=== PATIENT | male | born 1945 | race Caucasian/White ===

== ENCOUNTER 2022-08-01 17:45 | Inpatient (IN) | payer MEDICARE ==
[2022-08-01] MEDS ORDERED: Ketorolac Tromethamine 30 MG/ML VIAL ONE (18:55)
[2022-08-01] MEDS ORDERED: Fentanyl 100 MCG/2 ML VIAL ONE (18:55)
[2022-08-01] MEDS ORDERED: Ondansetron PF 4 MG/2 ML Vial ONE (18:55)
[2022-08-01] MEDS ORDERED: LORazepam 2 MG/ML SYR.(CARPUJECT) ONE (18:57)
[2022-08-01 19:42] LABS: #Basophils 0.1 thou/uL (0.0-0.2); #Eosinphils 0.2 thou/uL (0.0-0.7); #Lymphocytes 2.4 thou/uL (1.20-3.40); #Neutrophils 3.2 thou/uL (1.40-6.50); %Basophils 1.1 % (0.0-1.0); %Eosinophils 2.5 % (0.0-10.0); %Lymphocytes 34.8 % (21.0-51.0); %Monocytes 14.7 % (0.0-10.0); %Neutrophils 46.8 % (42.0-75.0); Hemoglobin 17.8 g/dL (14.0-18.0); Mean Corpuscular HGB CONC 33.4 g/dL (32.0-36.0); Mean Corpuscular Hemoglobin 30.9 pg (27.0-31.0); Mean Corpuscular Volume 92.7 fl (78.0-98.0); Mean Platelet Volume 7.1 fL (7.4-10.4); Platelet Count 113 10x3/uL (130-400); RBC Distribution Width 12.5 % (11.5-14.5); Red Blood Cell (RBC) Count 5.75 mill/uL (4.70-6.10); White Blood Cell (WBC) Count 6.9 10x3/uL (4.8-10.8)
[2022-08-01 19:45] LABS: Bilirubin Negative (Negative); Blood, Urine Negative (Negative); Clarity Clear (Clear); Glucose, Urine (Dipstick) 500 mg/dL (Negative); Ketone, Urine Negative (Negative); Leukocyte Negative Leu/uL (Negative); Nitrite Negative (Negative); Protein, Urine (Dipstick) Negative (Neg-Trace); Specific Gravity, Urine 1.024 (1.002-1.036); Urobilinogen 3 mg/dL (Less than 2); pH, Urine 5.5 (5.0-9.0)
[2022-08-01 19:51] LABS: INR-International Normal Ratio 0.9; Prothrombin Time 12.2 sec (12.0-14.7)
[2022-08-01 20:08] LABS: ALT (SGPT) 33 U/L (8-55); AST (SGOT) 33 U/L (5-34); Alkaline Phosphatase 59 U/L (40-110); Anion Gap 15 mmol/L (10-20); BUN (Urea Nitrogen) 17 mg/dL (8.4-25.7); Bilirubin, Total 0.8 mg/dL (0.2-1.2); Calc. Creatinine Clearance 0 mL/min (70-130); Calcium 9.1 mg/dL (7.8-10.44); Carbon Dioxide 24 mmol/L (23-31); Chloride 104 mmol/L (98-107); Estimated GFR 89; Globulin 3.1 g/dL (2.4-3.5); Glucose 142 mg/dL (83-110); Protein, Total 7.1 g/dL (5.8-8.1); Sodium 138 mmol/L (136-145)
[2022-08-01] MEDS ORDERED: Morphine 4 MG/ML VIAL ONE (21:08)
[2022-08-01] MEDS ORDERED: Dexamethasone 10 MG/ML VIAL ONE (21:52)
[2022-08-01] MEDS ORDERED: HYDROcodone/Acetaminophen 7.5/325 mg Tablet PO PRN (22:02)
[2022-08-01] MEDS ORDERED: Acetaminophen 325 MG TAB PO PRN (22:02)
[2022-08-01] MEDS ORDERED: Ondansetron PF 4 MG/2 ML Vial IVP PRN (22:02)
[2022-08-01] MEDS ORDERED: HumaLOG 300 UNITS/3 ML VIAL SC PRN (22:06)
[2022-08-01] MEDS ORDERED: Dextrose 5% in Water 1,000 ML IV PRN (22:06)
[2022-08-01] MEDS ORDERED: Dextrose 50% Abboject 50 ML SYRINGE SLOW IVP PRN (22:06)
[2022-08-02 00:29] VITALS: BMI 28.3
[2022-08-02] MEDS: HYDROcodone/Acetaminophen 10/325 mg Tablet PO PRN ×2 (02:54→23:53)
[2022-08-02] MEDS: Cyclobenzaprine 10 MG TAB PO PRN ×2 (02:54→20:44)
[2022-08-02 07:19] LABS: #Lymphocytes 0.9 thou/uL (1.20-3.40); #Monocytes 0.2 thou/uL (0.11-0.59); #Neutrophils 3.5 thou/uL (1.40-6.50); %Eosinophils 0.5 % (0.0-10.0); %Lymphocytes 19.2 % (21.0-51.0); %Monocytes 3.7 % (0.0-10.0); %Neutrophils 75.6 % (42.0-75.0); Hemoglobin 17.4 g/dL (14.0-18.0); Mean Corpuscular HGB CONC 33.6 g/dL (32.0-36.0); Mean Corpuscular Hemoglobin 31.6 pg (27.0-31.0); Mean Corpuscular Volume 93.9 fl (78.0-98.0); Mean Platelet Volume 7.2 fL (7.4-10.4); Platelet Count 122 10x3/uL (130-400); RBC Distribution Width 12.3 % (11.5-14.5); Red Blood Cell (RBC) Count 5.51 mill/uL (4.70-6.10); White Blood Cell (WBC) Count 4.6 10x3/uL (4.8-10.8)
[2022-08-02] MEDS: Mometasone/Formoterol 200/5 60 PUFF INH SCH ×2 (07:22→18:40)
[2022-08-02 07:34] LABS: Anion Gap 13 mmol/L (10-20); BUN (Urea Nitrogen) 21 mg/dL (8.4-25.7); Calc. Creatinine Clearance 98 mL/min (70-130); Calcium 8.8 mg/dL (7.8-10.44); Carbon Dioxide 23 mmol/L (23-31); Chloride 104 mmol/L (98-107); Estimated GFR 87; Glucose 235 mg/dL (83-110); Potassium 4.8 mmol/L (3.5-5.1); Sodium 135 mmol/L (136-145)
[2022-08-02] MEDS: Morphine 2 MG/ML VIAL SLOW IVP PRN ×3 (07:40→20:38)
[2022-08-02] MEDS: Losartan 25 MG TAB PO SCH (08:56)
[2022-08-02] MEDS ORDERED: fentaNYL PF 100 MCG/2 ML SYRINGE ONE (14:57)
[2022-08-02] MEDS ORDERED: Ketamine 50 MG/ML (10ML VIAL) ONE (14:58)
[2022-08-02] MEDS ORDERED: HYDROmorphone 0.5 MG/0.5 ML SYRINGE ONE (15:45)
[2022-08-02] MEDS ORDERED: PROPOFOL 200 MG/20 ML VIAL ONE (15:51)
[2022-08-02] MEDS ORDERED: Lidocaine 1% PF 5 ML VIAL ONE (15:51)
[2022-08-02] MEDS ORDERED: Ondansetron PF 4 MG/2 ML Vial ONE (15:51)
[2022-08-02] MEDS ORDERED: HYDROmorphone 2 MG/ML VIAL SLOW IVP PRN (16:32)
[2022-08-02] MEDS ORDERED: Morphine Sulfate 2 MG/ML SYRINGE SLOW IVP PRN (16:32)
[2022-08-02] MEDS ORDERED: Promethazine HCl 25 MG/ML VIAL IM PRN (16:32)
[2022-08-02] MEDS ORDERED: Ondansetron HCl/PF 4 MG/2 ML Vial IVP PRN (16:32)
[2022-08-02] MEDS ORDERED: Ketorolac Tromethamine 30 MG/ML VIAL IVP PRN (16:32)
[2022-08-02] MEDS ORDERED: Ketorolac Tromethamine 30 MG/ML VIAL ONE (16:44)
[2022-08-02] MEDS: Gabapentin 100 MG CAP PO SCH (20:43)
[2022-08-02] MEDS: Fish Oil 1,000 MG CAP PO SCH (20:43)
[2022-08-02] MEDS: Simvastatin 10 MG TAB PO SCH (20:44)
[2022-08-02] MEDS: Tamsulosin HCl 0.4 MG CAP PO SCH (20:44)
[2022-08-02] MEDS: Lidocaine 5% Patch TD SCH (20:44)
[2022-08-02] MEDS: Montelukast Sodium 10 mg Tablet PO SCH (20:44)
[2022-08-02] MEDS: methylPREDNISolone Sod Succ 40 MG VIAL IVP SCH (20:49)
[2022-08-02] MEDS: HumaLOG 300 UNITS/3 ML VIAL SC PRN (23:56)
[2022-08-03] MEDS: HYDROcodone/Acetaminophen 10/325 mg Tablet PO PRN ×3 (05:15→23:13)
[2022-08-03] MEDS: Cyclobenzaprine 10 MG TAB PO PRN ×3 (05:15→23:14)
[2022-08-03] MEDS: methylPREDNISolone Sod Succ 40 MG VIAL IVP SCH ×3 (05:15→21:13)
[2022-08-03] MEDS: HumaLOG 300 UNITS/3 ML VIAL SC PRN ×4 (05:58→23:16)
[2022-08-03 06:39] LABS: #Basophils 0.1 thou/uL (0.0-0.2); #Lymphocytes 1.3 thou/uL (1.20-3.40); #Monocytes 0.7 thou/uL (0.11-0.59); #Neutrophils 5.2 thou/uL (1.40-6.50); %Basophils 0.7 % (0.0-1.0); %Eosinophils 0.3 % (0.0-10.0); %Lymphocytes 18.1 % (21.0-51.0); %Monocytes 9.6 % (0.0-10.0); %Neutrophils 71.3 % (42.0-75.0); Hemoglobin 16.1 g/dL (14.0-18.0); Mean Corpuscular HGB CONC 33.8 g/dL (32.0-36.0); Mean Corpuscular Volume 94.6 fl (78.0-98.0); Mean Platelet Volume 7.6 fL (7.4-10.4); Platelet Count 134 10x3/uL (130-400); RBC Distribution Width 12.4 % (11.5-14.5); Red Blood Cell (RBC) Count 5.05 mill/uL (4.70-6.10); White Blood Cell (WBC) Count 7.3 10x3/uL (4.8-10.8)
[2022-08-03 07:04] LABS: Anion Gap 13 mmol/L (10-20); BUN (Urea Nitrogen) 23 mg/dL (8.4-25.7); Calc. Creatinine Clearance 90 mL/min (70-130); Calcium 8.9 mg/dL (7.8-10.44); Carbon Dioxide 26 mmol/L (23-31); Chloride 103 mmol/L (98-107); Estimated GFR 79; Glucose 246 mg/dL (83-110); Potassium 4.3 mmol/L (3.5-5.1); Sodium 138 mmol/L (136-145)
[2022-08-03] MEDS: Mometasone/Formoterol 200/5 60 PUFF INH SCH ×2 (07:25→18:28)
[2022-08-03] MEDS: glipiZIDE 10 MG TAB PO SCH (08:29)
[2022-08-03] MEDS: Fish Oil 1,000 MG CAP PO SCH ×2 (08:29→21:11)
[2022-08-03] MEDS: Gabapentin 100 MG CAP PO SCH ×3 (08:30→21:11)
[2022-08-03] MEDS: Losartan 25 MG TAB PO SCH (08:30)
[2022-08-03] MEDS: Morphine 2 MG/ML VIAL SLOW IVP PRN (08:30)
[2022-08-03] MEDS: Aspirin 81 mg Enteric Coated Tablet PO SCH (08:30)
[2022-08-03] MEDS: Transdermal Patch Removal TOP SCH (08:31)
[2022-08-03] MEDS ORDERED: Non-Formulary Item 1 EACH (Vit D3-Vit K/Berberine/Hops [Ostera Tablet] 1 TABLET Tablet) PO SCH (09:00)
[2022-08-03] MEDS ORDERED: Polyethylene Glycol 3350 17 GM Packet PO SCH (20:00)
[2022-08-03] MEDS: Lidocaine 5% Patch TD SCH (21:09)
[2022-08-03] MEDS: Senokot S 8.6-50 MG TAB PO SCH (21:10)
[2022-08-03] MEDS: Tamsulosin HCl 0.4 MG CAP PO SCH (21:11)
[2022-08-03] MEDS: Montelukast Sodium 10 mg Tablet PO SCH (21:11)
[2022-08-03] MEDS: Simvastatin 10 MG TAB PO SCH (21:11)
[2022-08-04] MEDS: HumaLOG 300 UNITS/3 ML VIAL SC PRN (05:06)
[2022-08-04] MEDS: Morphine 2 MG/ML VIAL SLOW IVP PRN (05:08)
[2022-08-04] MEDS: methylPREDNISolone Sod Succ 40 MG VIAL IVP SCH (05:18)
[2022-08-04 07:02] LABS: #Lymphocytes 1.4 thou/uL (1.20-3.40); #Monocytes 0.8 thou/uL (0.11-0.59); #Neutrophils 6.6 thou/uL (1.40-6.50); %Basophils 0.2 % (0.0-1.0); %Eosinophils 0.2 % (0.0-10.0); %Lymphocytes 16.1 % (21.0-51.0); %Monocytes 9.1 % (0.0-10.0); %Neutrophils 74.4 % (42.0-75.0); Hemoglobin 16.1 g/dL (14.0-18.0); Mean Corpuscular HGB CONC 33.6 g/dL (32.0-36.0); Mean Corpuscular Hemoglobin 31.9 pg (27.0-31.0); Mean Corpuscular Volume 95.1 fl (78.0-98.0); Mean Platelet Volume 7.9 fL (7.4-10.4); Platelet Count 130 10x3/uL (130-400); RBC Distribution Width 12.3 % (11.5-14.5); Red Blood Cell (RBC) Count 5.06 mill/uL (4.70-6.10); White Blood Cell (WBC) Count 8.9 10x3/uL (4.8-10.8)
[2022-08-04 07:21] LABS: Anion Gap 14 mmol/L (10-20); BUN (Urea Nitrogen) 20 mg/dL (8.4-25.7); Calc. Creatinine Clearance 95 mL/min (70-130); Calcium 9.3 mg/dL (7.8-10.44); Carbon Dioxide 26 mmol/L (23-31); Chloride 100 mmol/L (98-107); Estimated GFR 85; Glucose 301 mg/dL (83-110); Sodium 135 mmol/L (136-145)
[2022-08-04] MEDS: Mometasone/Formoterol 200/5 60 PUFF INH SCH (07:48)
[2022-08-04 08:18] VITALS: BP 163/73; TEMP 97.7
[2022-08-04] MEDS: Fish Oil 1,000 MG CAP PO SCH (08:47)
[2022-08-04] MEDS: Gabapentin 100 MG CAP PO SCH (08:47)
[2022-08-04] MEDS: glipiZIDE 10 MG TAB PO SCH (08:47)
[2022-08-04] MEDS: Transdermal Patch Removal TOP SCH (08:47)
[2022-08-04] MEDS: Losartan 25 MG TAB PO SCH (08:48)
[2022-08-04] MEDS: Senokot S 8.6-50 MG TAB PO SCH (08:48)
[2022-08-04] MEDS: Aspirin 81 mg Enteric Coated Tablet PO SCH (08:48)
[2022-08-04] MEDS ORDERED: Polyethylene Glycol 3350 17 GM Packet PO SCH (09:00)
[2022-08-04] MEDS ORDERED: PRILOSEC 20 MG PO SCH (09:00)
== END 2022-08-04 12:18 | disposition home or self-care (01) | DRG 552 ==
LOC: ERS 17:45 → T4-B 21:30 → OBSVTOIN 08-03 14:03
PROVIDERS: ADMIT Internal Medicine; ATTEND Family Medicine
DX: M54.16 Radiculopathy, lumbar region (principal); M25.78 Osteophyte, vertebrae; E11.9 Type 2 diabetes mellitus without complications; E78.5 Hyperlipidemia, unspecified; I10 Essential (primary) hypertension; D69.6 Thrombocytopenia, unspecified; Z87.891 Personal history of nicotine dependence
CPT/HCPCS: 36415; 36416; 71045; 72131; 72148; 80048; 80053; 81003; 85025; 85610; 85730; 93005; 96375; 96376; G0378; J1100; J1170; J1815; J1885; J2060; J2270; J2272; J2405; J2704; J2920; J3010; U0003; U0005

== ENCOUNTER 2022-08-22 10:47 | Emergency (ER) | payer MEDICARE ==
[2022-08-22 12:09] LABS: ALT (SGPT) 13 U/L (8-55); AST (SGOT) 13 U/L (5-34); Albumin 3.6 g/dL (3.4-4.8); Alkaline Phosphatase 64 U/L (40-110); Anion Gap 12 mmol/L (10-20); BUN (Urea Nitrogen) 36 mg/dL (8.4-25.7); Bilirubin, Total 0.8 mg/dL (0.2-1.2); Calc. Creatinine Clearance 0 mL/min (70-130); Calcium 8.6 mg/dL (7.8-10.44); Carbon Dioxide 27 mmol/L (23-31); Chloride 100 mmol/L (98-107); Estimated GFR 39; Globulin 2.6 g/dL (2.4-3.5); Glucose 178 mg/dL (83-110); Potassium 4.7 mmol/L (3.5-5.1); Protein, Total 6.2 g/dL (5.8-8.1); Sodium 134 mmol/L (136-145)
[2022-08-22 12:11] LABS: Bacteria/HPF None Seen HPF (None Seen); Bilirubin Negative (Negative); Blood, Urine Trace (Negative); Clarity Clear (Clear); Glucose, Urine (Dipstick) 200 mg/dL (Negative); Ketone, Urine Negative (Negative); Leukocyte Negative Leu/uL (Negative); Nitrite Negative (Negative); Protein, Urine (Dipstick) Negative (Neg-Trace); Specific Gravity, Urine 1.018 (1.002-1.036); Squamous Epithelial 0-3 HPF (0-3); Urobilinogen Normal mg/dL (Less than 2); WBC/HPF 0-3 HPF (0-3)
[2022-08-22 12:31] LABS: Eosinophils 2 % (0-10); Hemoglobin 14.6 g/dL (14.0-18.0); Lymphocytes 26 % (21-51); MDiff Complete? YES; Mean Corpuscular HGB CONC 33.7 g/dL (32.0-36.0); Mean Corpuscular Hemoglobin 31.4 pg (27.0-31.0); Mean Corpuscular Volume 93.1 fl (78.0-98.0); Mean Platelet Volume 6.7 fL (7.4-10.4); Monocytes 13 % (0-10); Neutrophil 56 % (42-75); Platelet Count 147 10x3/uL (130-400); Platelet Morphology Comment Appears Adequate; Polychromasia SLIGHT = 2-3 cells (100X) (0-2/hpf); RBC Distribution Width 12.3 % (11.5-14.5); Reactive Lymphocytes 3 % (0-10); Red Blood Cell (RBC) Count 4.65 mill/uL (4.70-6.10); Small Platelets SLIGHT; White Blood Cell (WBC) Count 6.8 10x3/uL (4.8-10.8)
== END 2022-08-22 15:49 | disposition home or self-care (01) ==
LOC: ERS 10:47
DX: I82.431 Acute embolism and thrombosis of right popliteal vein (principal); E78.5 Hyperlipidemia, unspecified; E11.9 Type 2 diabetes mellitus without complications; I11.0 Hypertensive heart disease with heart failure; I50.9 Heart failure, unspecified; Z79.84 Long term (current) use of oral hypoglycemic drugs; Z79.899 Other long term (current) drug therapy
CPT/HCPCS: 36415; 71045; 80053; 81003; 81015; 83880; 84443; 84484; 85025; 93005; 96372; J1650

== ENCOUNTER 2022-09-29 05:13 | Inpatient (IN) | payer MEDICARE ==
[2022-09-29] MEDS ORDERED: Naloxone HCl 0.4 mg/ml Vial ONE (05:30)
[2022-09-29 06:06] LABS: Analyzer IN Cardio ER; Base Excess (BEa) 3.3 mEq/L (-2.0 to +3.0); CO2 Tension 42.9 mmHg (35.0-45.0); Calcium, Ionized (arterial) 1.09 mmol/L (1.12-1.30); Carboxyhemoglobin (COHb) 1.2 gm% (0.0-3.0); Hemoglobin (Hb) 14.5 g/dL (14.0-18.0); pH, Arterial 7.43 (7.35-7.45)
[2022-09-29 06:09] LABS: ALV-art Gradient 110.925 mmHg (0-20); Puncture Site RR
[2022-09-29 06:12] LABS: #Lymphocytes 0.6 thou/uL (1.20-3.40); #Monocytes 1.2 thou/uL (0.11-0.59); #Neutrophils 9.7 thou/uL (1.40-6.50); %Basophils 0.3 % (0.0-1.0); %Eosinophils 0.2 % (0.0-10.0); %Lymphocytes 4.8 % (21.0-51.0); %Monocytes 10.8 % (0.0-10.0); %Neutrophils 83.9 % (42.0-75.0); Hemoglobin 14.2 g/dL (14.0-18.0); Mean Corpuscular HGB CONC 34.5 g/dL (32.0-36.0); Mean Corpuscular Hemoglobin 32.4 pg (27.0-31.0); Mean Corpuscular Volume 93.7 fl (78.0-98.0); Mean Platelet Volume 7.3 fL (7.4-10.4); Platelet Count 141 10x3/uL (130-400); RBC Distribution Width 12.8 % (11.5-14.5); White Blood Cell (WBC) Count 11.5 10x3/uL (4.8-10.8)
[2022-09-29 06:35] LABS: ALT (SGPT) 16 U/L (8-55); AST (SGOT) 31 U/L (5-34); Albumin 3.2 g/dL (3.4-4.8); Alkaline Phosphatase 68 U/L (40-110); Anion Gap 17 mmol/L (10-20); BUN (Urea Nitrogen) 20 mg/dL (8.4-25.7); Bilirubin, Total 0.9 mg/dL (0.2-1.2); CK (CPK) 53 U/L (30-200); Calc. Creatinine Clearance 0 mL/min (70-130); Calcium 8.6 mg/dL (7.8-10.44); Carbon Dioxide 23 mmol/L (23-31); Chloride 103 mmol/L (98-107); Estimated GFR 50; Globulin 3.3 g/dL (2.4-3.5); Glucose 293 mg/dL (83-110); Potassium 3.6 mmol/L (3.5-5.1); Protein, Total 6.5 g/dL (5.8-8.1); Sodium 139 mmol/L (136-145)
[2022-09-29 06:55] LABS: CKMB 1.2 ng/mL (0-6.6)
[2022-09-29] MEDS ORDERED: Piperacillin/Tazobactam 3.375 GM VIAL ONE (07:53)
[2022-09-29 08:49] LABS: Bacteria/HPF 2+ HPF (None Seen); Bilirubin Negative (Negative); Blood, Urine 3+ (Negative); Clarity Extra Turbid (Clear); Glucose, Urine (Dipstick) 500 mg/dL (Negative); Ketone, Urine Negative (Negative); Leukocyte 500 Leu/uL (Negative); Nitrite Negative (Negative); Protein, Urine (Dipstick) 50 mg/dL (Neg-Trace); Specific Gravity, Urine 1.011 (1.002-1.036); Squamous Epithelial None Seen HPF (0-3); Urobilinogen Normal mg/dL (Less than 2); WBC/HPF Greater than 50 HPF (0-3); pH, Urine 5.5 (5.0-9.0)
[2022-09-29] MEDS ORDERED: Dextrose 50% Abboject 50 ML SYRINGE SLOW IVP PRN (09:14)
[2022-09-29] MEDS ORDERED: Dextrose 5% in Water 1,000 ML IV PRN (09:14)
[2022-09-29 09:15] LABS: Troponin I 0.297 ng/mL (< 0.028)
[2022-09-29] MEDS ORDERED: Cyclobenzaprine 10 MG TAB PO PRN (09:17)
[2022-09-29] MEDS ORDERED: Metoclopramide HCl 10 MG/2 ML VIAL IVP PRN (09:23)
[2022-09-29] MEDS ORDERED: Sodium Chloride 0.9% 500 ML IV SCH (09:30)
[2022-09-29] MEDS ORDERED: Iopamidol-370 76% 500 ML MDV (1 ML CHARGE) ONE (09:32)
[2022-09-29] MEDS ORDERED: Lidocaine 4% Patch TD SCH (10:00)
[2022-09-29] MEDS ORDERED: Cefepime 1 GM VIAL ONE (12:40)
[2022-09-29] MEDS: Cefepime 1 GM in Sodium Chloride 0.9% 100 ML IVPB SCH (13:04)
[2022-09-29] MEDS: Sodium Chloride 0.9% 1,000 ML IV SCH ×2 (13:05→21:45)
[2022-09-29 13:06] LABS: Critical Call Chem Troponin I RESULT DECREASING; Troponin I 0.268 ng/mL (< 0.028)
[2022-09-29] MEDS ORDERED: Hydrocodone-Acetamin 15 ML UDCUP ONE (13:39)
[2022-09-29] MEDS ORDERED: HYDROcodone/Acetaminophen 7.5/325 mg Tablet ONE ×2 (13:41→13:44)
[2022-09-29] MEDS: HYDROcodone/Acetaminophen 7.5/325 mg Tablet PO PRN (13:52)
[2022-09-29] MEDS ORDERED: Acetaminophen 500 MG TAB ONE (15:51)
[2022-09-29] MEDS: Acetaminophen 500 MG TAB PO PRN (16:01)
[2022-09-29] MEDS ORDERED: Metoclopramide HCl 10 MG/2 ML VIAL ONE (16:37)
[2022-09-29] MEDS: Gabapentin 100 MG CAP PO SCH ×2 (18:35→21:40)
[2022-09-29 19:43] VITALS: BMI 28.3
[2022-09-29] MEDS ORDERED: Atorvastatin Calcium 40 MG TAB PO SCH (21:00)
[2022-09-29] MEDS ORDERED: Transdermal Patch Removal TOP SCH (21:00)
[2022-09-29] MEDS: Montelukast Sodium 10 mg Tablet PO SCH (21:33)
[2022-09-30] MEDS: Mometasone 200 MCG/Formoterol 5 MCG 120 PUFF INHALER INH SCH ×3 (01:05→18:35)
[2022-09-30] MEDS: Cefepime 1 GM in Sodium Chloride 0.9% 100 ML IVPB SCH ×2 (01:26→12:29)
[2022-09-30 05:08] LABS: Anion Gap 13 mmol/L (10-20); BUN (Urea Nitrogen) 30 mg/dL (8.4-25.7); Calc. Creatinine Clearance 58 mL/min (70-130); Calcium 8.1 mg/dL (7.8-10.44); Carbon Dioxide 25 mmol/L (23-31); Chloride 108 mmol/L (98-107); Estimated GFR 47; Glucose 188 mg/dL (83-110); Potassium 3.6 mmol/L (3.5-5.1); Sodium 142 mmol/L (136-145)
[2022-09-30 05:37] LABS: Band 18 % (5-11); Hemoglobin 11.7 g/dL (14.0-18.0); Lymphocytes 13 % (21-51); MDiff Complete? YES; Mean Corpuscular HGB CONC 34.3 g/dL (32.0-36.0); Mean Corpuscular Hemoglobin 32.3 pg (27.0-31.0); Mean Corpuscular Volume 94.3 fl (78.0-98.0); Mean Platelet Volume 7.6 fL (7.4-10.4); Metamyelocyte 2 % (0-0); Monocytes 7 % (0-10); Neutrophil 60 % (42-75); Platelet Count 119 10x3/uL (130-400); Platelet Morphology Comment Appears Decreased; RBC Distribution Width 12.9 % (11.5-14.5); RBC Morphology Normal; Red Blood Cell (RBC) Count 3.61 mill/uL (4.70-6.10); White Blood Cell (WBC) Count 12.6 10x3/uL (4.8-10.8)
[2022-09-30] MEDS: Sodium Chloride 0.9% 1,000 ML IV SCH ×2 (05:44→15:31)
[2022-09-30] MEDS: Gabapentin 100 MG CAP PO SCH ×2 (09:20→14:32)
[2022-09-30] MEDS: Polyethylene Glycol 3350 17 GM Packet PO SCH (09:21)
[2022-09-30] MEDS: Lidocaine 4% Patch TD SCH ×3 (09:22→21:11)
[2022-09-30] MEDS: Acetaminophen 500 MG TAB PO PRN (09:25)
[2022-09-30] MEDS: HumaLOG 300 UNITS/3 ML VIAL SC PRN ×3 (12:27→22:08)
[2022-09-30] MEDS: HYDROcodone/Acetaminophen 7.5/325 mg Tablet PO PRN ×2 (15:34→21:06)
[2022-09-30] MEDS ORDERED: Albuterol 200 PUFF (6.7GM INHALER) INH PRN (16:59)
[2022-09-30] MEDS ORDERED: HYDROcodone/Acetaminophen 10/325 mg Tablet PO PRN (16:59)
[2022-09-30] MEDS: Fish Oil 1,000 MG CAP PO SCH (21:06)
[2022-09-30] MEDS: Simvastatin 10 MG TAB PO SCH (21:06)
[2022-09-30] MEDS: Montelukast Sodium 10 mg Tablet PO SCH (21:15)
[2022-10-01] MEDS: Sodium Chloride 0.9% 1,000 ML IV SCH ×2 (01:34→11:42)
[2022-10-01] MEDS: Cefepime 1 GM in Sodium Chloride 0.9% 100 ML IVPB SCH (01:34)
[2022-10-01 04:56] LABS: #Eosinphils 0.1 thou/uL (0.0-0.7); #Lymphocytes 1.1 thou/uL (1.20-3.40); #Neutrophils 7.2 thou/uL (1.40-6.50); %Basophils 0.2 % (0.0-1.0); %Eosinophils 1.2 % (0.0-10.0); %Lymphocytes 11.9 % (21.0-51.0); %Monocytes 10.9 % (0.0-10.0); %Neutrophils 75.9 % (42.0-75.0); Hemoglobin 12.1 g/dL (14.0-18.0); Mean Corpuscular HGB CONC 32.8 g/dL (32.0-36.0); Mean Corpuscular Hemoglobin 31.3 pg (27.0-31.0); Mean Corpuscular Volume 95.6 fl (78.0-98.0); Mean Platelet Volume 7.7 fL (7.4-10.4); Platelet Count 142 10x3/uL (130-400); RBC Distribution Width 12.8 % (11.5-14.5); Red Blood Cell (RBC) Count 3.88 mill/uL (4.70-6.10); White Blood Cell (WBC) Count 9.5 10x3/uL (4.8-10.8)
[2022-10-01 05:03] LABS: Anion Gap 10 mmol/L (10-20); BUN (Urea Nitrogen) 26 mg/dL (8.4-25.7); Calc. Creatinine Clearance 72 mL/min (70-130); Calcium 8.4 mg/dL (7.8-10.44); Carbon Dioxide 30 mmol/L (23-31); Chloride 106 mmol/L (98-107); Estimated GFR 62; Glucose 236 mg/dL (83-110); Potassium 3.6 mmol/L (3.5-5.1); Sodium 142 mmol/L (136-145)
[2022-10-01] MEDS: Mometasone 200 MCG/Formoterol 5 MCG 120 PUFF INHALER INH SCH ×2 (08:24→18:25)
[2022-10-01] MEDS: Fish Oil 1,000 MG CAP PO SCH ×2 (08:40→20:37)
[2022-10-01] MEDS: Polyethylene Glycol 3350 17 GM Packet PO SCH (08:41)
[2022-10-01] MEDS: LIDOCAINE Patch Removal TOP SCH (08:41)
[2022-10-01] MEDS: HumaLOG 300 UNITS/3 ML VIAL SC PRN ×3 (11:42→21:35)
[2022-10-01] MEDS: Lidocaine 4% Patch TD SCH (20:36)
[2022-10-01] MEDS: Ciprofloxacin 500 MG TAB PO SCH (20:37)
[2022-10-01] MEDS: Montelukast Sodium 10 mg Tablet PO SCH (20:37)
[2022-10-01] MEDS: Simvastatin 10 MG TAB PO SCH (20:37)
[2022-10-01] MEDS ORDERED: Non-Formulary Item 1 EACH (Budesonide-Formoterol [Symbicort 160-4.5] 160 MG/4.5 MG Aer) INH SCH (21:00)
[2022-10-01] MEDS ORDERED: Apixaban 2.5 MG TAB PO SCH (21:00)
[2022-10-01] MEDS: HYDROcodone/Acetaminophen 7.5/325 mg Tablet PO PRN (21:39)
[2022-10-02] MEDS: Ciprofloxacin 500 MG TAB PO SCH (05:28)
[2022-10-02] MEDS: HYDROcodone/Acetaminophen 7.5/325 mg Tablet PO PRN ×2 (05:37→12:18)
[2022-10-02] MEDS: Mometasone 200 MCG/Formoterol 5 MCG 120 PUFF INHALER INH SCH (07:11)
[2022-10-02] MEDS ORDERED: metFORMIN 500 MG TAB PO SCH (08:00)
[2022-10-02 08:50] VITALS: BP 162/71; TEMP 98.5
[2022-10-02] MEDS ORDERED: Losartan 25 MG TAB PO SCH (09:00)
[2022-10-02] MEDS ORDERED: glipiZIDE 10 MG TAB PO SCH (09:00)
[2022-10-02] MEDS: Fish Oil 1,000 MG CAP PO SCH (10:08)
[2022-10-02] MEDS: LIDOCAINE Patch Removal TOP SCH (10:14)
[2022-10-02] MEDS: Polyethylene Glycol 3350 17 GM Packet PO SCH (10:15)
== END 2022-10-02 12:30 | disposition home or self-care (01) | DRG 871 ==
LOC: ERS 05:13 → ERHOLD 07:47 → 2NO 19:44
PROVIDERS: ADMIT Family Medicine; ATTEND Internal Medicine
PROC: 0T9B70Z Drainage of Bladder with Drainage Device, Via Natural or Artificial Opening (ICD-10-PCS; principal; 2022-09-29)
PROC: 4A033R1 Measurement of Arterial Saturation, Peripheral, Percutaneous Approach (ICD-10-PCS; 2022-09-29)
PROC: 3E03329 Introduction of Other Anti-infective into Peripheral Vein, Percutaneous Approach (ICD-10-PCS; 2022-09-29)
DX: A41.51 Sepsis due to Escherichia coli [E. coli] (principal); G93.41 Metabolic encephalopathy; I21.A1 Myocardial infarction type 2; J96.01 Acute respiratory failure with hypoxia; N17.9 Acute kidney failure, unspecified; N13.8 Other obstructive and reflux uropathy; N13.6 Pyonephrosis; E11.9 Type 2 diabetes mellitus without complications; I10 Essential (primary) hypertension; E78.5 Hyperlipidemia, unspecified; Z66 Do not resuscitate; R33.9 Retention of urine, unspecified; J45.909 Unspecified asthma, uncomplicated; G89.29 Other chronic pain; K21.9 Gastro-esophageal reflux disease without esophagitis; R31.0 Gross hematuria; N40.1 Benign prostatic hyperplasia with lower urinary tract symptoms; Z86.718 Personal history of other venous thrombosis and embolism; Z79.01 Long term (current) use of anticoagulants; Z98.890 Other specified postprocedural states
CPT/HCPCS: 36415; 36416; 70450; 71045; 71275; 74177; 80048; 80053; 81003; 81015; 82140; 82550; 82553; 82805; 83605; 83880; 84443; 84484; 85025; 87040; 87077; 87086; 87149; 87186; 93005; 93306; 96365; 96374; J0692; J1815; J2310; J2543; J2765; J3490; J7030; J7050; Q9967

== ENCOUNTER 2023-03-24 20:27 | Inpatient (IN) | payer MEDICARE, OTHER ==
[~2023-03-24 20:27] MED LIST: Iopamidol-370 76% 500 ML MDV (1 ML CHARGE) ONE
[2023-03-24 20:55] LABS: #Basophils 0.1 thou/uL (0.0-0.2); #Eosinphils 0.4 thou/uL (0.0-0.7); #Monocytes 0.8 thou/uL (0.11-0.59); %Basophils 1.2 % (0.0-1.0); %Eosinophils 4.6 % (0.0-10.0); %Lymphocytes 34.5 % (21.0-51.0); %Monocytes 10.1 % (0.0-10.0); %Neutrophils 49.2 % (42.0-75.0); Hematocrit 46.9 % (42.0-52.0); Hemoglobin 15.9 g/dL (14.0-18.0); Mean Corpuscular HGB CONC 33.9 g/dL (32.0-36.0); Mean Corpuscular Hemoglobin 31.1 pg (27.0-31.0); Mean Corpuscular Volume 91.6 fl (78.0-98.0); Mean Platelet Volume 9.1 fL (7.4-10.4); Platelet Count 138 10x3/uL (130-400); RBC Distribution Width 13.4 % (11.5-14.5); Red Blood Cell (RBC) Count 5.12 mill/uL (4.70-6.10); White Blood Cell (WBC) Count 8.1 10x3/uL (4.8-10.8)
[2023-03-24] MEDS ORDERED: Ondansetron PF 4 MG/2 ML Vial ONE (21:18)
[2023-03-24] MEDS ORDERED: niCARdipine 25 MG/10 ML SDV ONE (21:18)
[2023-03-24 21:20] LABS: Anion Gap 15 mmol/L (10-20); BUN (Urea Nitrogen) 12 mg/dL (8.4-25.7); Calc. Creatinine Clearance 0 mL/min (70-130); Carbon Dioxide 23 mmol/L (23-31); Chloride 103 mmol/L (98-107); Potassium 3.8 mmol/L (3.5-5.1); Prothrombin Time 13.8 sec (12.0-14.7); Sodium 137 mmol/L (136-145)
[2023-03-24 21:21] LABS: ALT (SGPT) 32 U/L (8-55); AST (SGOT) 27 U/L (5-34); Albumin 3.9 g/dL (3.4-4.8); Alkaline Phosphatase 70 U/L (40-110); Bilirubin, Total 0.6 mg/dL (0.2-1.2); Calcium 9.2 mg/dL (7.8-10.44); Estimated GFR 85; Globulin 2.9 g/dL (2.4-3.5); Glucose 159 mg/dL (83-110); Lipase 23 U/L (8-78); PTT 25.7 sec (22.9-36.1); Protein, Total 6.8 g/dL (5.8-8.1)
[2023-03-24 21:28] LABS: Acetaminophen Less than 10 mcg/mL (10.0-30.0); Alcohol Less than 10.0 mg/dL (Less than 10); Salicylate Less than 8.0 mg/dL (15.0-30.0)
[2023-03-24] MEDS ORDERED: niCARdipine 25 MG in Sodium Chloride 0.9% 250 ML 250 ML IVPB PRN (22:01)
[2023-03-24] MEDS ORDERED: HumaLOG 300 UNITS/3 ML VIAL SC PRN (22:05)
[2023-03-24] MEDS ORDERED: Dextrose 5% in Water 1,000 ML IV PRN (22:05)
[2023-03-24] MEDS ORDERED: Dextrose 50% Abboject 50 ML SYRINGE SLOW IVP PRN (22:05)
[2023-03-24] MEDS ORDERED: Glucagon 1 MG/ML KIT IM PRN (22:05)
[2023-03-24 22:08] LABS: Amphetamine Not Detected (NotDetected); Bacteria/HPF None Seen HPF (None Seen); Barbiturates Screen Not Detected (NotDetected); Benzodiazepine Screen Not Detected (NotDetected); Bilirubin Negative (Negative); Blood, Urine Negative (Negative); CAUTI Indications for Culture Alt mental st,lethar; Clarity Clear (Clear); Cocaine Metabolite Screen Not Detected (NotDetected); Glucose, Urine (Dipstick) Normal (Negative); Ketone, Urine Negative (Negative); Leukocyte 75 Leu/uL (Negative); Methadone Not Detected (NotDetected); Methamphetamine Not Detected (NotDetected); Nitrite Negative (Negative); Opiate Screen Not Detected (NotDetected); Oxycodone Screen Not Detected (NotDetected); Phencyclidine (PCP) Not Detected (NotDetected); Protein, Urine (Dipstick) Negative (Neg-Trace); RBC/HPF 0-3 HPF (0-3); Specific Gravity, Urine 1.016 (1.002-1.036); Squamous Epithelial None Seen HPF (0-3); THC/Cannabinoid Screen Not Detected (NotDetected); Tricyclic Screen Not Detected (NotDetected); Urobilinogen Normal mg/dL (Less than 2); pH, Urine 5.5 (5.0-9.0)
[2023-03-24 22:09] LABS: Urine Culture Reflex No No
[2023-03-24 23:58] VITALS: BMI 28.3
[2023-03-25] MEDS: niCARdipine 25 MG in Sodium Chloride 0.9% 250 ML 250 ML IVPB PRN ×4 (01:16→20:39)
[2023-03-25 02:23] LABS: SARS-CoV-2 NAA Rapid Test Not Detected (NotDetected)
[2023-03-25 05:07] LABS: #Basophils 0.1 thou/uL (0.0-0.2); #Eosinphils 0.4 thou/uL (0.0-0.7); #Monocytes 0.9 thou/uL (0.11-0.59); #Neutrophils 4.3 thou/uL (1.40-6.50); %Eosinophils 4.6 % (0.0-10.0); %Lymphocytes 28.8 % (21.0-51.0); %Monocytes 11.1 % (0.0-10.0); %Neutrophils 54.1 % (42.0-75.0); Hematocrit 46.1 % (42.0-52.0); Hemoglobin 15.5 g/dL (14.0-18.0); Mean Corpuscular HGB CONC 33.6 g/dL (32.0-36.0); Mean Corpuscular Hemoglobin 31.1 pg (27.0-31.0); Mean Corpuscular Volume 92.4 fl (78.0-98.0); Platelet Count 125 10x3/uL (130-400); RBC Distribution Width 13.6 % (11.5-14.5); Red Blood Cell (RBC) Count 4.99 mill/uL (4.70-6.10)
[2023-03-25 05:37] LABS: Anion Gap 15 mmol/L (10-20); BUN (Urea Nitrogen) 12 mg/dL (8.4-25.7); Calc. Creatinine Clearance 103 mL/min (70-130); Calcium 9.1 mg/dL (7.8-10.44); Carbon Dioxide 24 mmol/L (23-31); Chloride 103 mmol/L (98-107); Cholesterol 139 mg/dl (< 200 Desired); Estimated GFR 88; Glucose 180 mg/dL (83-110); HDL Cholesterol 28 mg/dL (>60 Neg Risk); LDL Cholesterol, Calculated 85 mg/dL; Potassium 3.9 mmol/L (3.5-5.1); Sodium 138 mmol/L (136-145); Triglycerides 131 mg/dL (Less than 150)
[2023-03-25] MEDS ORDERED: HYDROcodone/Acetaminophen 10/325 mg Tablet PO PRN (16:13)
[2023-03-25] MEDS ORDERED: Labetalol HCl 100 MG/20 ML VIAL SLOW IVP PRN (18:20)
[2023-03-25] MEDS: Fish Oil 1,000 MG CAP PO SCH (20:39)
[2023-03-25] MEDS ORDERED: niCARdipine 50 MG in Sodium Chloride 0.9% 250 ML 250 ML IVPB SCH (22:15)
[2023-03-25] MEDS ORDERED: Lactated Ringer's 500 ML IV SCH (22:45)
[2023-03-25] MEDS: niCARdipine 50 MG, Admixture Fee 1 EACH in Sodium Chloride 0.9% 250 ML 230 ML IV SCH (22:47)
[2023-03-25] MEDS: Ondansetron PF 4 MG/2 ML Vial IVP PRN (22:48)
[2023-03-25] MEDS: hydrALAZINE 20 MG/ML VIAL SLOW IVP PRN (23:07)
[2023-03-25] MEDS: Labetalol HCl 100 MG/20 ML VIAL SLOW IVP PRN (23:54)
[2023-03-26] MEDS ORDERED: Ondansetron PF 4 MG/2 ML Vial IVP SCH (00:30)
[2023-03-26] MEDS: hydrALAZINE 20 MG/ML VIAL SLOW IVP PRN ×2 (03:06→15:36)
[2023-03-26 03:52] LABS: #Basophils 0.1 thou/uL (0.0-0.2); #Neutrophils 8.1 thou/uL (1.40-6.50); %Basophils 0.5 % (0.0-1.0); %Eosinophils 0.4 % (0.0-10.0); %Monocytes 8.8 % (0.0-10.0); %Neutrophils 73.9 % (42.0-75.0); Hematocrit 47.4 % (42.0-52.0); Hemoglobin 16.1 g/dL (14.0-18.0); Mean Corpuscular Hemoglobin 30.8 pg (27.0-31.0); Mean Corpuscular Volume 90.6 fl (78.0-98.0); Mean Platelet Volume 9.1 fL (7.4-10.4); Platelet Count 149 10x3/uL (130-400); RBC Distribution Width 13.3 % (11.5-14.5); Red Blood Cell (RBC) Count 5.23 mill/uL (4.70-6.10)
[2023-03-26 04:09] LABS: Lactic Acid 2.6 mmol/L (0.5-2.2)
[2023-03-26 04:16] LABS: ALT (SGPT) 27 U/L (8-55); AST (SGOT) 19 U/L (5-34); Albumin 3.8 g/dL (3.4-4.8); Alkaline Phosphatase 63 U/L (40-110); Anion Gap 18 mmol/L (10-20); BUN (Urea Nitrogen) 14 mg/dL (8.4-25.7); Bilirubin, Direct 0.4 mg/dL (0.1-0.3); Bilirubin, Total 0.9 mg/dL (0.2-1.2); Calc. Creatinine Clearance 82 mL/min (70-130); Calcium 8.9 mg/dL (7.8-10.44); Carbon Dioxide 22 mmol/L (23-31); Chloride 102 mmol/L (98-107); Estimated GFR 71; Glucose 228 mg/dL (83-110); Protein, Total 6.6 g/dL (5.8-8.1); Sodium 138 mmol/L (136-145)
[2023-03-26] MEDS: Labetalol HCl 100 MG/20 ML VIAL SLOW IVP PRN ×3 (04:29→15:09)
[2023-03-26] MEDS: Mometasone 200 MCG/Formoterol 5 MCG 120 PUFF INHALER INH SCH (06:40)
[2023-03-26] MEDS: Fish Oil 1,000 MG CAP PO SCH ×2 (08:46→21:43)
[2023-03-26] MEDS: Losartan 25 MG TAB PO SCH (08:46)
[2023-03-26] MEDS: Finasteride 5 MG TAB PO SCH (08:46)
[2023-03-26] MEDS: Tamsulosin HCl 0.4 MG CAP PO SCH (08:47)
[2023-03-26] MEDS ORDERED: CHOLECALCIFEROL 1250 MCG PO SCH (09:00)
[2023-03-26] MEDS ORDERED: Metoclopramide HCl 10 MG/2 ML VIAL IVP SCH (09:15)
[2023-03-26] MEDS ORDERED: Polyethylene Glycol 3350 17 GM Packet PO SCH (09:30)
[2023-03-26] MEDS ORDERED: Senokot S 8.6-50 MG TAB PO SCH (09:30)
[2023-03-26] MEDS: Bisacodyl 10 MG SUPP PR SCH ×2 (09:41→15:36)
[2023-03-26] MEDS: Ondansetron PF 4 MG/2 ML Vial IVP PRN (09:42)
[2023-03-26] MEDS: HumaLOG 300 UNITS/3 ML VIAL SC PRN ×3 (11:56→21:44)
[2023-03-26] MEDS: niCARdipine 50 MG, Admixture Fee 1 EACH in Sodium Chloride 0.9% 250 ML 230 ML IV SCH ×2 (12:00→22:17)
[2023-03-26] MEDS: Metoclopramide HCl 10 MG/2 ML VIAL IVP SCH ×2 (14:18→21:44)
[2023-03-26] MEDS: Senokot S 8.6-50 MG TAB PO SCH (21:44)
[2023-03-27] MEDS: niCARdipine 50 MG, Admixture Fee 1 EACH in Sodium Chloride 0.9% 250 ML 230 ML IV SCH ×3 (04:17→22:08)
[2023-03-27 05:55] LABS: #Basophils 0.1 thou/uL (0.0-0.2); #Eosinphils 0.2 thou/uL (0.0-0.7); #Monocytes 1.4 thou/uL (0.11-0.59); %Basophils 0.4 % (0.0-1.0); %Eosinophils 1.5 % (0.0-10.0); %Lymphocytes 22.6 % (21.0-51.0); %Monocytes 12.3 % (0.0-10.0); %Neutrophils 62.8 % (42.0-75.0); Hemoglobin 15.1 g/dL (14.0-18.0); Mean Corpuscular HGB CONC 32.8 g/dL (32.0-36.0); Mean Corpuscular Hemoglobin 31.2 pg (27.0-31.0); Mean Platelet Volume 8.9 fL (7.4-10.4); Platelet Count 140 10x3/uL (130-400); RBC Distribution Width 13.9 % (11.5-14.5); Red Blood Cell (RBC) Count 4.84 mill/uL (4.70-6.10); White Blood Cell (WBC) Count 11.2 10x3/uL (4.8-10.8)
[2023-03-27 06:16] LABS: Anion Gap 12 mmol/L (10-20); BUN (Urea Nitrogen) 24 mg/dL (8.4-25.7); Calc. Creatinine Clearance 81 mL/min (70-130); Calcium 8.9 mg/dL (7.8-10.44); Carbon Dioxide 26 mmol/L (23-31); Chloride 104 mmol/L (98-107); Estimated GFR 69; Glucose 185 mg/dL (83-110); Sodium 138 mmol/L (136-145)
[2023-03-27] MEDS: Metoclopramide HCl 10 MG/2 ML VIAL IVP SCH ×3 (06:19→22:09)
[2023-03-27] MEDS: Mometasone 200 MCG/Formoterol 5 MCG 120 PUFF INHALER INH SCH (07:00)
[2023-03-27] MEDS: Bisacodyl 10 MG SUPP PR SCH (07:43)
[2023-03-27] MEDS: Polyethylene Glycol 3350 17 GM Packet PO SCH (07:44)
[2023-03-27] MEDS: Finasteride 5 MG TAB PO SCH (07:44)
[2023-03-27] MEDS: Losartan 25 MG TAB PO SCH (07:44)
[2023-03-27] MEDS: Fish Oil 1,000 MG CAP PO SCH ×2 (07:45→20:35)
[2023-03-27] MEDS: Senokot S 8.6-50 MG TAB PO SCH ×2 (07:45→20:35)
[2023-03-27] MEDS: Labetalol HCl 100 MG/20 ML VIAL SLOW IVP PRN (07:45)
[2023-03-27] MEDS: Tamsulosin HCl 0.4 MG CAP PO SCH (07:45)
[2023-03-27] MEDS ORDERED: Losartan 25 MG TAB PO SCH (10:00)
[2023-03-27] MEDS: HumaLOG 300 UNITS/3 ML VIAL SC PRN (11:13)
[2023-03-27] MEDS: cloNIDine 0.1 MG TAB PO PRN ×2 (11:21→18:25)
[2023-03-27] MEDS: Acetaminophen 500 MG TAB PER TUBE PRN (20:35)
[2023-03-27] MEDS: hydrALAZINE 20 MG/ML VIAL SLOW IVP PRN (23:21)
[2023-03-28] MEDS: Metoclopramide HCl 10 MG/2 ML VIAL IVP SCH ×2 (05:32→12:36)
[2023-03-28] MEDS: hydrALAZINE 20 MG/ML VIAL SLOW IVP PRN ×2 (05:33→12:27)
[2023-03-28] MEDS: cloNIDine 0.1 MG TAB PO PRN ×2 (06:04→13:36)
[2023-03-28] MEDS: HumaLOG 300 UNITS/3 ML VIAL SC PRN ×4 (06:18→21:00)
[2023-03-28] MEDS: Labetalol HCl 100 MG/20 ML VIAL SLOW IVP PRN ×3 (06:31→18:50)
[2023-03-28] MEDS: Mometasone 200 MCG/Formoterol 5 MCG 120 PUFF INHALER INH SCH (06:45)
[2023-03-28] MEDS: Amlodipine 10 MG TAB PO SCH (08:51)
[2023-03-28] MEDS: Finasteride 5 MG TAB PO SCH (08:52)
[2023-03-28] MEDS: Losartan 25 MG TAB PO SCH (08:52)
[2023-03-28] MEDS: Fish Oil 1,000 MG CAP PO SCH ×2 (08:52→20:57)
[2023-03-28] MEDS: Bisacodyl 10 MG SUPP PR SCH (08:52)
[2023-03-28] MEDS: Polyethylene Glycol 3350 17 GM Packet PO SCH (08:53)
[2023-03-28] MEDS: Tamsulosin HCl 0.4 MG CAP PO SCH (08:53)
[2023-03-28] MEDS: Senokot S 8.6-50 MG TAB PO SCH (08:57)
[2023-03-28] MEDS ORDERED: Montelukast Sodium 10 mg Tablet PO SCH (14:30)
[2023-03-28] MEDS ORDERED: Bisacodyl 10 MG SUPP PR PRN (16:58)
[2023-03-28] MEDS ORDERED: Polyethylene Glycol 3350 17 GM Packet PO PRN (16:58)
[2023-03-28] MEDS ORDERED: Senokot S 8.6-50 MG TAB PO PRN (16:59)
[2023-03-28] MEDS: niCARdipine 50 MG, Admixture Fee 1 EACH in Sodium Chloride 0.9% 250 ML 230 ML IV SCH (16:59)
[2023-03-28] MEDS: Acetaminophen 500 MG TAB PER TUBE PRN (19:45)
[2023-03-28] MEDS ORDERED: Pantoprazole 40 MG VIAL IVP SCH (23:30)
[2023-03-29] MEDS ORDERED: Mag-Al 1200 mg/1200 mg/30 ML UDCUP PO PRN (00:50)
[2023-03-29] MEDS: niCARdipine 50 MG, Admixture Fee 1 EACH in Sodium Chloride 0.9% 250 ML 230 ML IV SCH ×2 (03:29→09:19)
[2023-03-29 05:15] LABS: #Basophils 0.1 thou/uL (0.0-0.2); #Eosinphils 0.1 thou/uL (0.0-0.7); #Monocytes 1.1 thou/uL (0.11-0.59); #Neutrophils 6.5 thou/uL (1.40-6.50); %Basophils 0.5 % (0.0-1.0); %Eosinophils 1.4 % (0.0-10.0); %Lymphocytes 19.3 % (21.0-51.0); %Monocytes 11.1 % (0.0-10.0); %Neutrophils 67.3 % (42.0-75.0); Hematocrit 44.3 % (42.0-52.0); Hemoglobin 15.1 g/dL (14.0-18.0); Mean Corpuscular HGB CONC 34.1 g/dL (32.0-36.0); Mean Corpuscular Hemoglobin 31.1 pg (27.0-31.0); Mean Corpuscular Volume 91.3 fl (78.0-98.0); Mean Platelet Volume 8.9 fL (7.4-10.4); Platelet Count 138 10x3/uL (130-400); RBC Distribution Width 13.2 % (11.5-14.5); Red Blood Cell (RBC) Count 4.85 mill/uL (4.70-6.10); White Blood Cell (WBC) Count 9.7 10x3/uL (4.8-10.8)
[2023-03-29 05:40] LABS: Anion Gap 14 mmol/L (10-20); BUN (Urea Nitrogen) 26 mg/dL (8.4-25.7); Calc. Creatinine Clearance 101 mL/min (70-130); Calcium 8.9 mg/dL (7.8-10.44); Carbon Dioxide 23 mmol/L (23-31); Chloride 101 mmol/L (98-107); Estimated GFR 87; Glucose 201 mg/dL (83-110); Potassium 4.3 mmol/L (3.5-5.1); Sodium 134 mmol/L (136-145)
[2023-03-29] MEDS: HumaLOG 300 UNITS/3 ML VIAL SC PRN ×3 (06:29→16:16)
[2023-03-29] MEDS: Mometasone 200 MCG/Formoterol 5 MCG 120 PUFF INHALER INH SCH (07:21)
[2023-03-29] MEDS: Finasteride 5 MG TAB PO SCH (08:08)
[2023-03-29] MEDS: Montelukast Sodium 10 mg Tablet PO SCH (08:08)
[2023-03-29] MEDS: Fish Oil 1,000 MG CAP PO SCH ×2 (08:08→19:36)
[2023-03-29] MEDS: Tamsulosin HCl 0.4 MG CAP PO SCH (08:08)
[2023-03-29] MEDS: Losartan 25 MG TAB PO SCH (08:08)
[2023-03-29] MEDS: Amlodipine 10 MG TAB PO SCH (08:08)
[2023-03-29] MEDS: Ondansetron PF 4 MG/2 ML Vial IVP PRN (08:19)
[2023-03-29] MEDS: hydrALAZINE 25 MG TAB PO SCH ×4 (09:19→19:36)
[2023-03-29] MEDS: hydrALAZINE 20 MG/ML VIAL SLOW IVP PRN (16:48)
[2023-03-29] MEDS: Acetaminophen 500 MG TAB PER TUBE PRN (19:37)
[2023-03-29] MEDS ORDERED: Pantoprazole 40 MG VIAL IVP SCH (20:45)
[2023-03-30] MEDS: hydrALAZINE 20 MG/ML VIAL SLOW IVP PRN (06:04)
[2023-03-30] MEDS: Mometasone 200 MCG/Formoterol 5 MCG 120 PUFF INHALER INH SCH (07:00)
[2023-03-30] MEDS ORDERED: Labetalol HCl 100 MG/20 ML VIAL SLOW IVP PRN (07:40)
[2023-03-30] MEDS: Amlodipine 10 MG TAB PO SCH (08:33)
[2023-03-30] MEDS: Finasteride 5 MG TAB PO SCH (08:34)
[2023-03-30] MEDS: Pantoprazole 40 MG VIAL IVP SCH (08:34)
[2023-03-30] MEDS: Montelukast Sodium 10 mg Tablet PO SCH (08:34)
[2023-03-30] MEDS: Tamsulosin HCl 0.4 MG CAP PO SCH (08:34)
[2023-03-30] MEDS: Fish Oil 1,000 MG CAP PO SCH ×2 (08:34→20:34)
[2023-03-30] MEDS: Losartan 25 MG TAB PO SCH (08:34)
[2023-03-30] MEDS: hydrALAZINE 25 MG TAB PO SCH ×4 (08:34→20:35)
[2023-03-30] MEDS: HumaLOG 300 UNITS/3 ML VIAL SC PRN (11:29)
[2023-03-30] MEDS: Acetaminophen 500 MG TAB PER TUBE PRN (13:33)
[2023-03-31] MEDS: Acetaminophen 500 MG TAB PER TUBE PRN ×2 (04:27→12:10)
[2023-03-31] MEDS: HumaLOG 300 UNITS/3 ML VIAL SC PRN ×2 (06:36→13:37)
[2023-03-31] MEDS: hydrALAZINE 20 MG/ML VIAL SLOW IVP PRN (06:37)
[2023-03-31] MEDS: Mometasone 200 MCG/Formoterol 5 MCG 120 PUFF INHALER INH SCH (06:53)
[2023-03-31] MEDS: hydrALAZINE 25 MG TAB PO SCH ×4 (09:00→21:49)
[2023-03-31] MEDS: Fish Oil 1,000 MG CAP PO SCH ×2 (09:01→21:49)
[2023-03-31] MEDS: Finasteride 5 MG TAB PO SCH (09:01)
[2023-03-31] MEDS: Tamsulosin HCl 0.4 MG CAP PO SCH (09:01)
[2023-03-31] MEDS: Losartan 25 MG TAB PO SCH (09:01)
[2023-03-31] MEDS: Montelukast Sodium 10 mg Tablet PO SCH (09:02)
[2023-03-31] MEDS: Pantoprazole 40 MG VIAL IVP SCH (09:02)
[2023-03-31] MEDS: Amlodipine 10 MG TAB PO SCH (09:02)
[2023-04-01] MEDS: Acetaminophen 500 MG TAB PER TUBE PRN (00:24)
[2023-04-01 04:32] LABS: Bacteria/HPF 4+ HPF (None Seen); Bilirubin Negative (Negative); Blood, Urine Negative (Negative); Clarity Turbid (Clear); Glucose, Urine (Dipstick) 30 mg/dL (Negative); Ketone, Urine Negative (Negative); Leukocyte 250 Leu/uL (Negative); Nitrite Negative (Negative); Protein, Urine (Dipstick) Negative (Neg-Trace); RBC/HPF 0-3 HPF (0-3); Specific Gravity, Urine 1.007 (1.002-1.036); Squamous Epithelial None Seen HPF (0-3); Urobilinogen Normal mg/dL (Less than 2); WBC/HPF 21-50 HPF (0-3); pH, Urine 6.5 (5.0-9.0)
[2023-04-01 05:18] LABS: #Basophils 0.1 thou/uL (0.0-0.2); #Eosinphils 0.2 thou/uL (0.0-0.7); #Monocytes 1.4 thou/uL (0.11-0.59); #Neutrophils 5.5 thou/uL (1.40-6.50); %Basophils 0.8 % (0.0-1.0); %Eosinophils 2.2 % (0.0-10.0); %Lymphocytes 29.6 % (21.0-51.0); %Monocytes 13.3 % (0.0-10.0); %Neutrophils 53.8 % (42.0-75.0); Hematocrit 45.5 % (42.0-52.0); Hemoglobin 15.7 g/dL (14.0-18.0); Mean Corpuscular HGB CONC 34.5 g/dL (32.0-36.0); Mean Corpuscular Hemoglobin 30.5 pg (27.0-31.0); Mean Corpuscular Volume 88.3 fl (78.0-98.0); Mean Platelet Volume 9.2 fL (7.4-10.4); Platelet Count 207 10x3/uL (130-400); RBC Distribution Width 12.5 % (11.5-14.5); Red Blood Cell (RBC) Count 5.15 mill/uL (4.70-6.10); White Blood Cell (WBC) Count 10.2 10x3/uL (4.8-10.8)
[2023-04-01] MEDS: HumaLOG 300 UNITS/3 ML VIAL SC PRN ×2 (06:41→19:09)
[2023-04-01] MEDS: Mometasone 200 MCG/Formoterol 5 MCG 120 PUFF INHALER INH SCH (06:45)
[2023-04-01 07:35] LABS: Anion Gap 15 mmol/L (10-20); BUN (Urea Nitrogen) 16 mg/dL (8.4-25.7); Calc. Creatinine Clearance 87 mL/min (70-130); Calcium 9.1 mg/dL (7.8-10.44); Carbon Dioxide 21 mmol/L (23-31); Chloride 100 mmol/L (98-107); Estimated GFR 76; Glucose 158 mg/dL (83-110); Potassium 3.7 mmol/L (3.5-5.1); Sodium 132 mmol/L (136-145)
[2023-04-01] MEDS: Cephalexin 250 MG CAP PO SCH ×3 (08:58→20:32)
[2023-04-01] MEDS: Finasteride 5 MG TAB PO SCH (08:59)
[2023-04-01] MEDS: Amlodipine 10 MG TAB PO SCH (08:59)
[2023-04-01] MEDS: hydrALAZINE 25 MG TAB PO SCH ×4 (09:00→20:32)
[2023-04-01] MEDS: Fish Oil 1,000 MG CAP PO SCH ×2 (09:00→20:32)
[2023-04-01] MEDS: Losartan 25 MG TAB PO SCH (09:00)
[2023-04-01] MEDS: Montelukast Sodium 10 mg Tablet PO SCH (09:00)
[2023-04-01] MEDS: Tamsulosin HCl 0.4 MG CAP PO SCH (09:01)
[2023-04-01] MEDS: Pantoprazole 40 MG VIAL IVP SCH (09:01)
[2023-04-02] MEDS: Cephalexin 250 MG CAP PO SCH ×4 (01:43→20:46)
[2023-04-02] MEDS: Acetaminophen 500 MG TAB PER TUBE PRN (03:27)
[2023-04-02] MEDS: HumaLOG 300 UNITS/3 ML VIAL SC PRN ×4 (05:56→19:08)
[2023-04-02] MEDS: Mometasone 200 MCG/Formoterol 5 MCG 120 PUFF INHALER INH SCH (06:46)
[2023-04-02 08:13] LABS: #Basophils 0.1 thou/uL (0.0-0.2); #Eosinphils 0.2 thou/uL (0.0-0.7); #Monocytes 1.2 thou/uL (0.11-0.59); #Neutrophils 5.4 thou/uL (1.40-6.50); %Basophils 0.9 % (0.0-1.0); %Eosinophils 2.4 % (0.0-10.0); %Lymphocytes 10.7 % (21.0-51.0); %Monocytes 15.4 % (0.0-10.0); %Neutrophils 70.5 % (42.0-75.0); Hematocrit 45.3 % (42.0-52.0); Hemoglobin 15.8 g/dL (14.0-18.0); Mean Corpuscular HGB CONC 34.9 g/dL (32.0-36.0); Mean Platelet Volume 8.9 fL (7.4-10.4); Platelet Count 200 10x3/uL (130-400); RBC Distribution Width 12.6 % (11.5-14.5); Red Blood Cell (RBC) Count 5.09 mill/uL (4.70-6.10); White Blood Cell (WBC) Count 7.6 10x3/uL (4.8-10.8)
[2023-04-02 08:37] LABS: Anion Gap 13 mmol/L (10-20); BUN (Urea Nitrogen) 19 mg/dL (8.4-25.7); CRP (Inflammatory) 1.67 mg/dL (= or < 0.5); Calc. Creatinine Clearance 91 mL/min (70-130); Calcium 9.2 mg/dL (7.8-10.44); Carbon Dioxide 24 mmol/L (23-31); Chloride 98 mmol/L (98-107); Estimated GFR 84; Glucose 166 mg/dL (83-110); Potassium 4.1 mmol/L (3.5-5.1); Sodium 131 mmol/L (136-145)
[2023-04-02] MEDS: hydrALAZINE 25 MG TAB PO SCH ×4 (09:07→20:42)
[2023-04-02] MEDS: Fish Oil 1,000 MG CAP PO SCH ×2 (09:07→20:48)
[2023-04-02] MEDS: Amlodipine 10 MG TAB PO SCH (09:08)
[2023-04-02] MEDS: Finasteride 5 MG TAB PO SCH (09:08)
[2023-04-02] MEDS: Losartan 25 MG TAB PO SCH (09:08)
[2023-04-02] MEDS: Tamsulosin HCl 0.4 MG CAP PO SCH (09:08)
[2023-04-02] MEDS: Pantoprazole 40 MG VIAL IVP SCH (09:08)
[2023-04-02] MEDS: Montelukast Sodium 10 mg Tablet PO SCH (09:08)
[2023-04-02] MEDS ORDERED: Nitroglycerin 0.4 MG TAB (25 Tab Bottle) SL PRN (09:27)
[2023-04-02] MEDS ORDERED: Morphine 2 MG/ML VIAL SLOW IVP PRN (09:27)
[2023-04-02 09:53] LABS: Troponin I Less than 0.010 ng/mL (< 0.028)
[2023-04-02] MEDS ORDERED: Iopamidol-370 76% 500 ML MDV (1 ML CHARGE) ONE (15:52)
[2023-04-03] MEDS: Cephalexin 250 MG CAP PO SCH ×3 (02:19→13:08)
[2023-04-03 04:27] LABS: Hematocrit 44.9 % (42.0-52.0); Hemoglobin 15.6 g/dL (14.0-18.0); Manual Diff?? YES; Mean Corpuscular HGB CONC 34.7 g/dL (32.0-36.0); Mean Corpuscular Hemoglobin 30.8 pg (27.0-31.0); Mean Corpuscular Volume 88.7 fl (78.0-98.0); Mean Platelet Volume 9.1 fL (7.4-10.4); Platelet Count 204 10x3/uL (130-400); RBC Distribution Width 12.9 % (11.5-14.5); Red Blood Cell (RBC) Count 5.06 mill/uL (4.70-6.10); White Blood Cell (WBC) Count 7.1 10x3/uL (4.8-10.8)
[2023-04-03 04:29] LABS: Delete Auto Diff?? YES
[2023-04-03 04:54] LABS: Anion Gap 15 mmol/L (10-20); BUN (Urea Nitrogen) 23 mg/dL (8.4-25.7); Calc. Creatinine Clearance 83 mL/min (70-130); Calcium 9.1 mg/dL (7.8-10.44); Carbon Dioxide 22 mmol/L (23-31); Chloride 97 mmol/L (98-107); Estimated GFR 75; Glucose 176 mg/dL (83-110); Potassium 3.8 mmol/L (3.5-5.1); Sodium 130 mmol/L (136-145)
[2023-04-03 05:09] LABS: Band 1 % (5-11); CellaVision Operator ID lab.sh2; Eosinophils 1 % (0-10); Lymphocytes 20 % (21-51); Monocytes 21 % (0-10); Neutrophil 55 % (42-75); Platelet Adequacy Comment Platelets Normal; Polychromasia SLIGHT = 2-3 cells HPF (0-2); Smudge Cells 10.9 %; Total Cell Count 101
[2023-04-03] MEDS: HumaLOG 300 UNITS/3 ML VIAL SC PRN ×2 (06:32→13:14)
[2023-04-03] MEDS: Mometasone 200 MCG/Formoterol 5 MCG 120 PUFF INHALER INH SCH (07:33)
[2023-04-03] MEDS: Fish Oil 1,000 MG CAP PO SCH (09:12)
[2023-04-03] MEDS: Pantoprazole 40 MG VIAL IVP SCH (09:13)
[2023-04-03] MEDS: Montelukast Sodium 10 mg Tablet PO SCH (09:13)
[2023-04-03] MEDS: hydrALAZINE 25 MG TAB PO SCH ×2 (09:13→13:08)
[2023-04-03] MEDS: Finasteride 5 MG TAB PO SCH (09:13)
[2023-04-03] MEDS: Losartan 25 MG TAB PO SCH (09:13)
[2023-04-03] MEDS: Tamsulosin HCl 0.4 MG CAP PO SCH (09:14)
[2023-04-03] MEDS: Amlodipine 10 MG TAB PO SCH (09:14)
[2023-04-03 15:40] VITALS: BP 136/62; TEMP 99.6
== END 2023-04-03 17:13 | disposition swing bed (61) | DRG 64 ==
LOC: ERS 20:27 → CCU 21:29 → 2SE 03-30 12:07
PROVIDERS: ADMIT Internal Medicine; ATTEND Hospitalist
PROC: 0T9B70Z Drainage of Bladder with Drainage Device, Via Natural or Artificial Opening (ICD-10-PCS; principal; 2023-03-24)
PROC: 4A00X4Z Measurement of Central Nervous Electrical Activity, External Approach (ICD-10-PCS; 2023-03-25)
DX: I61.9 Nontraumatic intracerebral hemorrhage, unspecified (principal); G93.6 Cerebral edema; N17.9 Acute kidney failure, unspecified; G81.91 Hemiplegia, unspecified affecting right dominant side; N13.8 Other obstructive and reflux uropathy; R29.710 NIHSS score 10; E78.5 Hyperlipidemia, unspecified; E11.9 Type 2 diabetes mellitus without complications; N40.1 Benign prostatic hyperplasia with lower urinary tract symptoms; R33.8 Other retention of urine; I11.9 Hypertensive heart disease without heart failure; M54.16 Radiculopathy, lumbar region; Z20.822 Contact with and (suspected) exposure to COVID-19; Z79.899 Other long term (current) drug therapy; Z79.84 Long term (current) use of oral hypoglycemic drugs; Z79.82 Long term (current) use of aspirin; Z98.890 Other specified postprocedural states; Z86.718 Personal history of other venous thrombosis and embolism; Z87.891 Personal history of nicotine dependence; Z79.4 Long term (current) use of insulin; Z79.01 Long term (current) use of anticoagulants; R29.810 Facial weakness; R47.1 Dysarthria and anarthria; R13.10 Dysphagia, unspecified
CPT/HCPCS: 36415; 36416; 51702; 70450; 70496; 70498; 71045; 71275; 74018; 74230; 76999; 80048; 80053; 80061; 80076; 80306; 80307; 81001; 83036; 83605; 83690; 83880; 84443; 84484; 85025; 85379; 85610; 85730; 86140; 87040; 87086; 93005; 93010; 93306; 93970; 95711; 95819; 95957; 96365; 96375; C9113; J0360; J1815; J2272; J2405; J2765; J7050; J7120; Q9967; U0002

== ENCOUNTER 2025-06-27 18:09 | Inpatient (IN) | payer MEDICARE ==
[2025-06-27] MEDS ORDERED: Acetaminophen 325 MG TAB ONE (18:53)
[2025-06-27] MEDS ORDERED: Cefepime 2 GM VIAL ONE (18:54)
[2025-06-27 18:58] LABS: ALT (SGPT) 16 U/L (Less than 45); AST (SGOT) 21 U/L (11-34); Albumin 3.5 g/dL (3.1-4.5); Alkaline Phosphatase 68 U/L (40-110); Anion Gap 15 mmol/L (10-20); BUN (Urea Nitrogen) 15 mg/dL (8.4-25.7); Bilirubin, Total 1.4 mg/dL (0.3-1.2); Calc. Creatinine Clearance 0 mL/min (70-130); Calcium 8.6 mg/dL (7.8-10.44); Carbon Dioxide 26 mmol/L (23-31); Chloride 106 mmol/L (98-107); Globulin 3.0 g/dL (2.4-3.5); Glucose 203 mg/dL (83-110); Magnesium 1.3 mg/dL (1.6-2.6); Potassium 4.3 mmol/L (3.5-5.1); Sodium 143 mmol/L (136-145)
[2025-06-27 18:59] LABS: #Basophils 0.05 10x3/uL (0.0-0.2); #Eosinophils 0.10 10x3/uL (0.0-0.7); #Monocytes 0.59 10x3/uL (0.11-0.59); #Neutrophils 5.68 10x3/uL (1.40-6.50); %Basophils 0.7 % (0.0-1.0); %Eosinophils 1.4 % (0.0-10.0); %Lymphocytes 6.4 % (21.0-51.0); %Monocytes 8.6 % (0.0-10.0); %Neutrophils 82.3 % (42.0-75.0); Hematocrit 46.5 % (42.0-52.0); Hemoglobin 15.2 g/dL (14.0-18.0); Mean Corpuscular Hemoglobin 29.9 pg (27.0-31.0); Mean Corpuscular Volume 91.5 fL (78.0-98.0); Platelet Count 138 10x3/uL (130-400); Red Blood Cell (RBC) Count 5.08 mill/uL (4.70-6.10); White Blood Cell (WBC) Count 6.90 10x3/uL (4.8-10.8)
[2025-06-27] MEDS ORDERED: VANCOMYCIN 2 GRAM/400 ML BAG 400 ML ONE (20:39)
[2025-06-27 21:38] LABS: Bacteria/HPF 2+ HPF (None Seen); CAUTI Indications for Culture < 2yrs of age; Glucose, Urine (Dipstick) 300 mg/dL (Negative); Leukocyte 500 Leu/uL (Negative); Protein, Urine (Dipstick) 30 mg/dL (Neg-Trace); Specific Gravity, Urine 1.018 (1.002-1.036); WBC/HPF Greater than 50 HPF (0-3)
[2025-06-27 21:43] LABS: Urine Culture Reflex Yes Yes
[2025-06-27] MEDS ORDERED: Glucagon 1 MG/ML KIT IM PRN (22:41)
[2025-06-27] MEDS ORDERED: Dextrose 50% Abboject 50 ML SYRINGE SLOW IVP PRN (22:41)
[2025-06-27] MEDS ORDERED: Albuterol 200 PUFF (6.7GM INHALER) INH PRN (22:41)
[2025-06-27] MEDS ORDERED: Guaifenesin DM 100-10/5 ML UDCUP PO PRN (22:42)
[2025-06-27] MEDS ORDERED: Acetaminophen 325 MG TAB PO PRN (22:42)
[2025-06-27] MEDS ORDERED: Calcium Carbonate 500 MG ChewTAB PO PRN (22:42)
[2025-06-27] MEDS ORDERED: Ondansetron PF 4 MG/2 ML Vial IVP PRN (22:42)
[2025-06-28] MEDS ORDERED: cefTRIAXone (ROCEPHIN) 2 GM VIAL ONE (01:34)
[2025-06-28] MEDS: cefTRIAXone\\ROCEPHIN 2 GM in Sodium Chloride 0.9% 100 ML IVPB SCH (01:48)
[2025-06-28 06:49] LABS: #Basophils 0.08 10x3/uL (0.0-0.2); #Eosinophils 0.04 10x3/uL (0.0-0.7); #Monocytes 0.85 10x3/uL (0.11-0.59); #Neutrophils 3.91 10x3/uL (1.40-6.50); %Basophils 1.4 % (0.0-1.0); %Eosinophils 0.7 % (0.0-10.0); %Lymphocytes 13.8 % (21.0-51.0); %Monocytes 15.0 % (0.0-10.0); %Neutrophils 68.9 % (42.0-75.0); Hematocrit 42.3 % (42.0-52.0); Hemoglobin 13.3 g/dL (14.0-18.0); Mean Corpuscular Hemoglobin 29.6 pg (27.0-31.0); Mean Corpuscular Volume 94.0 fL (78.0-98.0); Platelet Count 113 10x3/uL (130-400); Red Blood Cell (RBC) Count 4.50 mill/uL (4.70-6.10); White Blood Cell (WBC) Count 5.67 10x3/uL (4.8-10.8)
[2025-06-28 07:09] LABS: Anion Gap 10 mmol/L (10-20); BUN (Urea Nitrogen) 14 mg/dL (8.4-25.7); Calc. Creatinine Clearance 0 mL/min (70-130); Calcium 8.1 mg/dL (7.8-10.44); Carbon Dioxide 27 mmol/L (23-31); Chloride 109 mmol/L (98-107); Glucose 118 mg/dL (83-110); Potassium 3.7 mmol/L (3.5-5.1); Sodium 142 mmol/L (136-145)
[2025-06-28] MEDS: Metoprolol Succinate XL 50 MG ER.TAB PO SCH (10:39)
[2025-06-28] MEDS: Enoxaparin 40 MG (0.4 mL) SYRINGE SC SCH (10:39)
[2025-06-28] MEDS: Losartan 25 MG TAB PO SCH (10:39)
[2025-06-28] MEDS: Sertraline 25 MG TAB PO SCH (10:39)
[2025-06-28 14:05] VITALS: BMI 27.4
[2025-06-29 05:33] VITALS: TEMP 97.9
[2025-06-29] MEDS: Pantoprazole 40 MG DR.TAB PO SCH (09:07)
[2025-06-29 09:15] VITALS: BP 166/70
== END 2025-06-29 14:27 | disposition home or self-care (01) | DRG 872 ==
LOC: ERS 18:09 → ERHOLD 21:52 → T4-A 06-28 07:45
PROVIDERS: ADMIT Internal Medicine; ATTEND Student in an Organized Health Care Education/Training Program
DX: A41.59 Other Gram-negative sepsis (principal); N30.00 Acute cystitis without hematuria; I10 Essential (primary) hypertension; E78.5 Hyperlipidemia, unspecified; E11.9 Type 2 diabetes mellitus without complications; J45.20 Mild intermittent asthma, uncomplicated; N40.0 Benign prostatic hyperplasia without lower urinary tract symptoms; Z86.718 Personal history of other venous thrombosis and embolism; Z98.890 Other specified postprocedural states; Z88.2 Allergy status to sulfonamides; Z85.46 Personal history of malignant neoplasm of prostate
CPT/HCPCS: 36415; 36416; 71045; 71260; 74177; 80048; 80053; 81001; 83605; 83735; 83880; 84484; 85025; 87040; 87077; 87086; 87186; 87428; 93005; 94760; 96365; 96366; 96375; J0692; J0696; J1650; J3375; Q9967